=== PATIENT | female | born 1945 | race Caucasian/White ===

== ENCOUNTER → 2016-10-30 | Outpatient (CLI) | payer MEDICARE, BC ==
[2013-12-13 10:45] VITALS: BP 144/72
[~2016-10-30] MED LIST: CYAN50LO PO; DENO60DI SQ; L GA1CAP2 PO; TRAM50TA PO
--- NOTE | 2016-10-30 09:33 | RAD ---
Thoracic spine, 3 views, 10/30/2016: History: Upper back pain The bony structures are demineralized. There is a moderate right convexity thoracic and left convexity thoracolumbar scoliosis. There are mild scattered marginal spurs. There appears to be mild loss of height of the T12 vertebral body. This is not well delineated on the lateral view due to obliquity of positioning related to the scoliosis. The appears to have been present on old CT abdomen images from 05/29/2010. No other fracture is identified. Aortic calcific plaquing is evident. IMPRESSION: 1. Demineralization. 2. Moderate thoracolumbar scoliosis. 3. Mild scattered degenerative changes. 4. Mild loss of height of the T12 vertebral body, probably old.
== END | disposition home or self-care (01) ==
LOC: RAD 09:00
PROVIDERS: ATTEND Anesthesiology
DX: M54.6 Pain in thoracic spine (principal); M41.9 Scoliosis, unspecified; R29.890 Loss of height
CPT/HCPCS: 72072; G0463

== ENCOUNTER → 2016-11-06 | Outpatient (CLI) | payer MEDICARE, BC ==
[2013-12-13 10:45] VITALS: BP 144/72
[~2016-11-06] MED LIST changes: +BUPIVACAINE MPF 0.25% 10 ML VIAL. ONE; +methylPREDNISolone ACETATE 40 MG/ML VIAL. ONE; +methylPREDNISolone ACETATE 80 MG/ML VIAL. ONE
--- NOTE | 2016-11-07 06:40 | PAIN ---
DATE OF SERVICE: 11/06/2016 PROGRESS NOTE FOR PAIN CLINIC DIAGNOSES: 1. Thoracic spondylosis. 2. Thoracic degenerative disk disease. HISTORY OF PRESENT ILLNESS: The patient is a 71-year-old female who returns for followup status post initial evaluation and plain films of thoracic spine, which ruled out any new compression fractures. There is some demineralization and thoracolumbar scoliosis noted with degenerative change and old T12 vertebral compression. The patient returns reporting still significant pain in the upper mid back bilaterally, somewhat worse on the left than the right, but present on both sides as it was previously. The patient has finished a round of antibiotics now and is on her last day of Cipro from urinary tract infection and is afebrile and has been feeling much better with this. We had delayed her procedure secondary to her UTI on her last visit. The patient reports otherwise doing well. Her pain is a 5 on a scale of 10, bilateral pain in the upper back and neck, shoulders, on the left side worse than the right. The patient reports no new motor or sensory deficits or other complaints. We did try Medrol Dosepak, but she only had minimal relief with this. PHYSICAL EXAMINATION: VITAL SIGNS: Today, the patient's blood pressure is 119/62, pulse is 84, respirations 20, temperature is 98.0 degrees Fahrenheit, weight is 135 pounds. GENERAL: The patient is awake, alert, oriented, appropriate, has a very pleasant demeanor. HEENT: Shows normocephalic, atraumatic. Extraocular movements are intact and symmetrical. Oral cavity shows mucous membranes moist and pink. Dentition is intact. NECK: Shows anterior throat supple without palpable lymphadenopathy noted. Swallow reflex is symmetrical. CHEST: Shows normal on inspection. Breath sounds are clear to auscultation bilaterally. HEART: Shows S1 and S2 clear. No murmurs are auscultated. ABDOMEN: Soft, nontender, nondistended. No palpable organomegaly is noted. No rebound or guarding demonstrated. BACK: Shows spine grossly in the midline, with rightward scoliosis of the thoracic distribution, there is significant tenderness over the spinous processes from approximately the T3-T4 through T7-T8 region in the thoracic spine. Paraspinous musculature is slightly hypertrophied on the right compared to the left, but maybe due to the rightward curvature as well and is moderately tender bilaterally, but only diffusely without specific radiation or trigger points. EXTREMITIES: The patient's upper extremities show deep tendon reflexes 2+ in the biceps and triceps tendons. 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 The patient does have some significant tenderness with palpation over the left superior and anterior aspect of the acromioclavicular joint on the left side, but not on the right. PLAN: Options were discussed with the patient at this time, the patient's old chart was reviewed as was her current medication regimen and updated. Current review of systems updated today as well. We will proceed with bilateral thoracic medial branch facet blocks at the T3, T4, T5, T6 and T7 levels bilaterally with fluoroscopic guidance. Risks were again discussed including, but not limited to bleeding, infection, possibility of intravascular injection and sequelae, spread of local anesthetic and numbness, epidural hematoma and subsequent neurological compromise, dural punctures, headaches, spinal cord and/or nerve damage, pneumothorax, side effects of steroid medications, exposure to fluoroscopy and poor results regarding pain control. The patient understands and wishes to proceed. The patient will return to the clinic in approximately 2 weeks for followup, was counseled as to return appointment, activity level and side effects to be aware of. DIAGNOSIS: Thoracic spondylosis with thoracic degenerative disk disease. PROCEDURE: Bilateral thoracic facet medial branch blocks, T3, T4, T5, T6, T7 using C-arm fluoroscopic guidance under sterile prep and drape using local anesthetic. MEDICATIONS INJECTED: 120 mg Depo-Medrol total and a total of 10 mL of 0.25% bupivacaine with negative aspiration at each level. CONDITION AT DISCHARGE: Stable. The patient tolerated the procedure well, had no complications. LINDSAY MANCIA MD DR: JOHN/renae JOB#: [id number] / [id number]
== END | disposition home or self-care (01) ==
LOC: PNCL 07:41
PROVIDERS: ATTEND Anesthesiology
DX: M51.34 Other intervertebral disc degeneration, thoracic region (principal); M47.894 Other spondylosis, thoracic region; K21.9 Gastro-esophageal reflux disease without esophagitis; M19.90 Unspecified osteoarthritis, unspecified site; Z90.710 Acquired absence of both cervix and uterus; Z98.42 Cataract extraction status, left eye; Z98.41 Cataract extraction status, right eye
CPT/HCPCS: 64490; 64491; 64492; J1030; J1040; J3490

== ENCOUNTER → 2016-12-08 | Outpatient (CLI) | payer MEDICARE, BC ==
[2013-12-13 10:45] VITALS: BP 144/72
[~2016-12-08] MED LIST changes: -methylPREDNISolone ACETATE 40 MG/ML VIAL. ONE
--- NOTE | 2016-12-08 11:26 | RAD ---
Indication: Shoulder pain. Portal image intensifier was provided. A total of 6 seconds of fluoroscopy time was utilized. A single image was obtained. There is a needle overlying the acromioclavicular joint. Impression: Left AC joint injection.
--- NOTE | 2016-12-09 01:17 | PAIN ---
DATE OF SERVICE: 12/08/2016 DIAGNOSES: 1. Thoracic spondylosis with thoracic degenerative disk disease. 2. Left shoulder joint pain. HISTORY OF PRESENT ILLNESS: The patient is a 71-year-old female who returns for followup status post thoracic bilateral medial branch blocks T3, T4, T5, T6 and T7. The patient reports she did very well. There was 100% improvement after the injections. Her main pain today is the left shoulder, which she was having difficulty with on her last visit. We treated her back first, she is doing much better as noted. She returns today complaining of pain in the left shoulder with caring ____ to her side, moving the shoulder past about 45 degrees to 90 degrees, lateral abduction causes significant pain in the superior aspect of the shoulder and somewhat in the superior posterior aspect of the shoulder as well. The patient reports no gross strength loss in the left arm, but significant pain with mobility. The patient reports no new motor or sensory deficits, no new bowel or bladder incontinence or other complaints. Again back is doing much better after the medial branch blocks. The pain in the left shoulder now is aching, sharp, burning, radiating, constant, rates as 8 on scale of 10. The patient reports it awakens her from sleep at least 3-4 times at night, may be sometimes 5. She has to get up to pain medication in the middle of the evening. The patient reports otherwise no new motor or sensory deficits or other complaints. PHYSICAL EXAMINATION: VITAL SIGNS: Today, the patient's blood pressure is 128/68 and pulse 85, respirations are 18, temperature is 98.2 degrees Fahrenheit, height is 5 feet 2 inches, and weighs 133 pounds. GENERAL: The patient is awake, alert, oriented, appropriate, very pleasant demeanor. HEENT: Head shows normocephalic and atraumatic. Extraocular movements are intact and symmetrical. Oral cavity, mucous membranes moist and pink. Dentition is intact. NECK: Shows anterior throat supple without palpable lymphadenopathy noted. Neck shows full rotational motion of the cervical spine without difficulty or tenderness. CHEST: Shows normal on inspection. Breath sounds are clear to auscultation bilaterally. HEART: Shows S1 and S2 clear. ABDOMEN: Soft, nontender, and nondistended. No palpable organomegaly, no rebound or guarding demonstrated. BACK: Shows spine grossly in midline with normal-appearing cervical lordotic curvature, thoracic kyphotic curvature, thoracic paraspinous musculature shows some very mild tenderness with palpation, but only very mildly without radiation bilaterally and shows good rotation of motion both lateral rotation with extension and flexion without exacerbation of pain on exam today. EXTREMITIES: The patient's upper extremities show deep tendon reflexes at 2+ in the biceps and triceps tendons. 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 Options were discussed with the patient. The patient's old chart was reviewed as her current medication regimen and updated. Current review of systems updated today as well and we will proceed with a left acromioclavicular joint injection with fluoroscopic guidance. Risks were again discussed including, but not limited to bleeding, infection, possibility of intravascular injection, sequelae, spread of local anesthetic and numbness, side effects of steroid medications, exposure to fluoroscopy and poor results regarding pain control. The patient understands and wishes to proceed. The patient will return to clinic in approximately 4 weeks or as necessary. I would like to follow up on as needed basis at this time, counseled on activity levels as well as side effects to be aware of. DIAGNOSIS: Left shoulder acromioclavicular joint pain. PROCEDURE: Left acromioclavicular joint injection with fluoroscopic guidance under sterile prep and drape using local anesthetic. MEDICATION INJECTED: A total of 3 mL of 0.25% bupivacaine and total of 80 mg Depo-Medrol. CONDITION AT DISCHARGE: Stable. The patient tolerated procedure well, had no complications. LINDSAY MANCIA MD DR: JOHN/renae JOB#: [id number] / [id number]
== END | disposition home or self-care (01) ==
LOC: PNCL 10:37
PROVIDERS: ATTEND Anesthesiology
DX: M25.512 Pain in left shoulder (principal); Z98.41 Cataract extraction status, right eye; Z98.42 Cataract extraction status, left eye; K21.9 Gastro-esophageal reflux disease without esophagitis; Z90.710 Acquired absence of both cervix and uterus; M47.814 Spondylosis without myelopathy or radiculopathy, thoracic region; M51.34 Other intervertebral disc degeneration, thoracic region
CPT/HCPCS: 20605; 77002; J1040; J3490

== ENCOUNTER 2017-09-04 18:56 | Emergency (ER) | payer MEDICARE, BC ==
[2017-09-04 20:06] LABS: BILIRUBIN,URINE NEGATIVE (NEG); CLARITY,URINE CLEAR; COLOR,URINE YELLOW; GLUCOSE,URINE NEGATIVE (NEG); NITRITE,URINE NEGATIVE (NEG); PROTEIN,URINE NEGATIVE (NEG-TRACE); UROBILINOGEN,URINE 0.2 mg/dL (0.2 mg/dL)
[2017-09-04] MEDS: HYDROcodone/APAP 5/325MG 1 TAB TABLET PO ×2 (20:14)
[2017-09-04 20:17] LABS: BACTERIA,URINE 0 /HPF (0-FEW); RBC,URINE 0 /HPF (0-2); SQUAMOUS EPITHELIAL CELL,UR FEW /LPF; WBC,URINE 0 /HPF (0-4)
[2017-09-04] MEDS: PHENAZOPYRIDINE 200 MG TABLET. PO ×2 (21:30)
== END 2017-09-04 21:30 | disposition home or self-care (01) ==
LOC: ER 18:56
DX: R10.31 Right lower quadrant pain (principal); Z90.710 Acquired absence of both cervix and uterus; Z88.0 Allergy status to penicillin; Z88.6 Allergy status to analgesic agent; Z88.8 Allergy status to other drugs, medicaments and biological substances; Z91.041 Radiographic dye allergy status
CPT/HCPCS: 74176; 81001; 99285-25

== ENCOUNTER → 2017-11-10 | Day surgery (SDC) | payer MEDICARE, BC ==
[~2017-11-10] MED LIST changes: -BUPIVACAINE MPF 0.25% 10 ML VIAL. ONE; -CYAN50LO PO; -DENO60DI SQ; -L GA1CAP2 PO; +LIDOCAINE 1% PF 2 ML VIAL. ID; +MORPHINE SULFATE 4 MG/ML DISP.SYRIN. IV; +ONDANSETRON PF 4 MG/2 ML VIAL. IV; +PROCHLORPERAZINE 10 MG/2 ML VIAL. IV; +PROPOFOL 20 ML IV; -TRAM50TA PO; +fentaNYL PF VIAL 100 MCG/2 ML VIAL IV; -methylPREDNISolone ACETATE 80 MG/ML VIAL. ONE
[2017-11-10] MEDS: IV RINGERS,LACTATED 1000ML 1,000 ML IV (09:24)
== END | disposition home or self-care (01) ==
LOC: ENDOS 08:42
DX: K64.0 First degree hemorrhoids (principal); K57.30 Diverticulosis of large intestine without perforation or abscess without bleeding; Z86.010 Personal history of colon polyps; M19.90 Unspecified osteoarthritis, unspecified site; K21.9 Gastro-esophageal reflux disease without esophagitis; M81.0 Age-related osteoporosis without current pathological fracture; M47.894 Other spondylosis, thoracic region; Z90.710 Acquired absence of both cervix and uterus; Z98.890 Other specified postprocedural states; Z87.440 Personal history of urinary (tract) infections; Z79.899 Other long term (current) drug therapy; Z88.0 Allergy status to penicillin; Z88.8 Allergy status to other drugs, medicaments and biological substances; Z98.49 Cataract extraction status, unspecified eye; Z72.0 Tobacco use
CPT/HCPCS: 45378; 45380; 45385; 88305; J2704

== ENCOUNTER → 2018-09-30 | Outpatient (CLI) | payer MEDICARE, BC ==
[2017-11-10 10:48] VITALS: BP 132/72
[~2018-09-30] MED LIST changes: +CYAN50LO PO; +DENO60DI SQ; +GABA600T7 PO; +L GA1CAP2 PO; -LIDOCAINE 1% PF 2 ML VIAL. ID; -MORPHINE SULFATE 4 MG/ML DISP.SYRIN. IV; -ONDANSETRON PF 4 MG/2 ML VIAL. IV; +PHEN-318 PO; -PROCHLORPERAZINE 10 MG/2 ML VIAL. IV; -PROPOFOL 20 ML IV; +TIZA4TAB PO; +TRAM50TA PO; -fentaNYL PF VIAL 100 MCG/2 ML VIAL IV
--- NOTE | 2018-09-30 15:48 | [facility] ---
MRI Lumbar Spine without contrast History: Lumbar stenosis, chronic low back pain, bilateral foot numbness in recent months Technique: Multiplanar, multi sequential noncontrast MR imaging was performed of the lumbar spine. Comparison: May 30, 2010 Findings: There is mild grade 1 anterior spondylolisthesis L5-S1 due to L5 spondylolysis as seen previously. There is negligible anterior spondylolisthesis L3-4 which is unchanged. There is a similar degree of superior endplate concavity T12, increased at L3 without associated marrow edema or osseous retropulsion. There is moderate degenerative disc disease at L3-4 which has progressed in the interval, mild degenerative disc disease L5-S1 and L2-3, mild disc desiccation L4-5. There is moderate to severe levoscoliosis centered near L2. There is mild left lateral subluxation L3 relative to L4. T12-L1: Neural foramina and spinal canal are adequate. L1-L2: There is mild facet degenerative change. Neural foramina and spinal canal are adequate. L2-L3: There is [id number] facet degenerative change. There is negligible disc osteophyte complex and protrusion in the right lateral recess. Spinal canal and neural foramina are overall adequate. L3-L4: There is mild to moderate facet degenerative change and minimal buckling of the ligamentum flavum. There is again minimal disc osteophyte complex and bulge. Neural foramina and spinal canal are adequate. L4-L5: There is a very shallow posterior protrusion which is partially calcified as seen previously, no spinal stenosis or neural impingement. There is mild facet degenerative change. There is minimal narrowing of the left neural foramen, right neural foramen adequate. L5-S1: There is [id number] facet degenerative change. Spinal canal is adequate. There is right laminectomy defect. There is minimal disc osteophyte complex. There is mild narrowing of the right neural foramen. There is moderate to severe narrowing of the left neural foramen, somewhat less prominent than previously as previously seen protrusion decreased. However there is again contact of the exiting left L5 nerve root. Impression: 1. There is moderate to severe lumbar levoscoliosis, abnormal alignment as stated including grade 1 anterior spondylolisthesis at L5-S1 due to L5 spondylolysis. There is moderate to severe narrowing of the left L5-S1 neural foramen although somewhat less prominent than previously. There is no new significant lumbar spinal stenosis. There is multilevel degenerative disc disease which has progressed at L3-4 in the interval. There is old superior endplate concavity of L3 and T12, no evidence of recent compression fracture. Electronically signed by: Hayes Saleh MD (09/30/2018 3:45 PM) [facility]
== END | disposition home or self-care (01) ==
LOC: KCIC MRI 13:54
PROVIDERS: ATTEND Neurological Surgery
DX: M43.17 Spondylolisthesis, lumbosacral region (principal); M48.07 Spinal stenosis, lumbosacral region; M51.36 Other intervertebral disc degeneration, lumbar region; M51.37 Other intervertebral disc degeneration, lumbosacral region; M47.896 Other spondylosis, lumbar region
CPT/HCPCS: 72148

== ENCOUNTER → 2018-10-13 | Outpatient (CLI) | payer MEDICARE, BC ==
[2017-11-10 10:48] VITALS: BP 132/72
[~2018-10-13] MED LIST changes: +IOHEXOL 180 MG/ML 10 ML VIAL. ONE; +methylPREDNISolone ACETATE 40 MG/ML VIAL. ONE; +methylPREDNISolone ACETATE 80 MG/ML VIAL. ONE
--- NOTE | 2018-10-14 06:19 | PAIN ---
DATE OF SERVICE: 10/13/2018 PROGRESS NOTE FOR PAIN CLINIC DIAGNOSES: 1. Cervical radiculopathy with cervical degenerative disk disease. 2. Thoracic spondylosis with thoracic degenerative disk disease. 3. Left shoulder joint pain. HISTORY OF PRESENT ILLNESS: The patient is a 73-year-old female who returns for followup, last seen in 12/2016. The patient had some injections of the shoulder as well as some facet joint injections in the thoracic spine with very good results. She has recently seen her neurosurgeon, has had a new MRI scan of the cervical spine showing some degenerative changes of C5-C6, C6-C7 and C7-T1 with multilevel degenerative processes with central canal narrowing foraminal stenosis, mild contour alteration of the ventral spinal cord and slight increased T2 signal of the cord at C5-C6 level as well. The patient reports that the pain is in the base of the neck more on the left than the right shoulder and upper extremity with repetitive motions in the upper extremities. Sitting for prolonged periods watching television or driving causes some pain in the base of the neck as well as constant headaches. Also the patient reports it is worse with activity, worse with rotation of motion to some point and into the left shoulder and arm, but not into the hand. The patient reports also some pain in the mid back and upper back, but very infrequently. The patient reports it does not awaken her from sleep at night and she describes as aching and dull in the neck and shoulder with a constant quality in the base of the neck and left arm and also some tingling and burning in the feet bilaterally. The patient reports her pain is an 8 on a scale of 10 at its worst, 6 on average, 3 at its least and is a 6 today. The patient reports no new motor or sensory deficits, no new bowel or bladder incontinence or other complaints. Her mid back is doing much better since her treatment few years ago as her shoulder did very well and she has seen orthopedic surgeon regarding these also. PHYSICAL EXAMINATION: VITAL SIGNS: Today, the patient's blood pressure 115/55, pulse 77, respirations 16, temperature 98.1 degrees Fahrenheit, height is 5 feet 2 inches and weight is 122 pounds. GENERAL: The patient is awake, alert, oriented, appropriate, very pleasant demeanor. HEENT: Head shows normocephalic and atraumatic. Extraocular movements are intact and symmetrical. Oral cavity: Mucous membranes are moist and pink. Dentition is intact. NECK: Shows anterior throat is supple without palpable lymphadenopathy noted. Swallow reflex is symmetrical. CHEST: Shows normal with inspection. Breath sounds are clear to auscultation bilaterally. HEART: Shows S1 and S2 clear. No murmurs are auscultated. ABDOMEN: Soft, nontender and nondistended. No palpable organomegaly is noted. No rebound or guarding demonstrated. BACK: Shows spine grossly in the midline. Normal appearing thoracic kyphosis, cervical lordotic curvature and lumbar lordotic curvature. Cervical paraspinous muscle shows symmetrical on inspection. On palpation shows some mild tenderness, but only diffusely in the cervical distribution, inferior aspect of the cervical paraspinous muscles, but symmetrical without evidence of atrophy, hypertrophy and no trigger points. The patient shows good rotational motion of the cervical spine, both right and left lateral past 45 degrees closer to 90 degrees, full extension, full forward flexion without exacerbation of pain. EXTREMITIES: The patient's upper extremities show deep tendon reflexes at 2+ in the biceps and triceps tendons. Motor exam is strong with tobacco sampler strength rated 5/5 and equal as is bicep and tricep flexion and equal. Peripheral pulses are 2+ radial distribution. No peripheral edema is noted bilaterally. Options were discussed with the patient. The patient's old chart was reviewed as was her current medication regimen updated. Current review of systems updated today as well. We will proceed with a cervical epidural steroid injection today with fluoroscopic guidance. Risks were again discussed including, but not limited to bleeding, infection, possibility of epidural hematoma, subsequent neurologic compromise, dural puncture, headaches, spinal cord and/or nerve damage, side effects of steroid medication and poor results regarding pain control. The patient understands and wished to proceed. The patient will return to the clinic in approximately 2 weeks for followup. She was counseled as to return appointment, activity level and side effects to be aware of. DIAGNOSES: Cervical radiculopathy with cervical degenerative disk disease. PROCEDURE: Cervical epidural steroid injection, translaminar approach C6-C7 level using C-arm fluoroscopic guidance under sterile prep and drape using local anesthetic. MEDICATION INJECTED: A total of 120 mg Depo-Medrol plus 10 mL of preservative-free normal saline and 2 mL of Isovue for contrast. CONDITION AT DISCHARGE: Stable. The patient tolerated the procedure well and had no complications. LINDSAY MANCIA MD DR: Tripp JOB#: [id number] / [id number]
== END | disposition home or self-care (01) ==
LOC: PNCL 08:57
PROVIDERS: ATTEND Anesthesiology
DX: M50.123 Cervical disc disorder at C6-C7 level with radiculopathy (principal); M51.14 Intervertebral disc disorders with radiculopathy, thoracic region; M47.24 Other spondylosis with radiculopathy, thoracic region; M25.512 Pain in left shoulder; Z88.0 Allergy status to penicillin; Z88.6 Allergy status to analgesic agent; Z88.8 Allergy status to other drugs, medicaments and biological substances
CPT/HCPCS: 62321; J1030; J1040; Q9965

== ENCOUNTER → 2018-10-26 | Outpatient (CLI) | payer MEDICARE, BC ==
[2017-11-10 10:48] VITALS: BP 132/72
[~2018-10-26] MED LIST changes: -IOHEXOL 180 MG/ML 10 ML VIAL. ONE
--- NOTE | 2018-10-26 20:32 | PAIN ---
DATE OF SERVICE: 10/26/2018 DIAGNOSES: 1. Cervical radiculopathy with cervical degenerative disk disease. 2. Thoracic spondylosis with thoracic degenerative disk disease. 3. Left shoulder joint pain.. HISTORY OF PRESENT ILLNESS: The patient is a 73-year-old female who returns for followup status post cervical epidural steroid injection x1. The patient reports no significant improvement in the base of the neck pain and radiating pain to her left shoulder and upper extremity. The patient reports the pain continues in the posterior deltoid, posterior triceps into the forearm, both anteriorly and medially and some tingling in the hand. The patient reports it also aching and dull in the neck, becoming more constant with tingling, burning in the left hand, no specific loss of motor function, but she is noticing some increased fatigue with her left hand, left arm with repetitive motions, reaching above her head. The patient reports pain is 7 on a scale of 10 at all times, worst, least and on average, is a 7 today. The patient reports no new motor or sensory deficits. Still waking her from sleep at night. The patient reports no other changes. PHYSICAL EXAMINATION: VITAL SIGNS: The patient's blood pressure 134/54, pulse 81, respirations 16, temperature is 98.0 degrees Fahrenheit. Height 5 feet 2 inches, weight is 125 pounds. GENERAL: The patient is awake, alert, oriented, appropriate, very pleasant demeanor. HEENT: Head is normocephalic, atraumatic. Extraocular muscles are intact and symmetrical. Oral cavity: Mucous membranes moist and pink. Dentition is intact. NECK: Shows anterior throat supple without palpable lymphadenopathy noted. Swallow reflex symmetrical. CHEST: Shows normal with inspection. Breath sounds clear to auscultation bilaterally. HEART: Shows S1, S2 clear. No murmurs auscultated. ABDOMEN: Soft, nontender, nondistended. No palpable organomegaly is noted. No rebound or guarding demonstrated. BACK: Shows spine grossly in the midline. Cervical lordotic curvature is maintained as is thoracic kyphotic curvature and lumbar lordotic curvature. Cervical paraspinous muscle shows symmetrical on inspection. On palpation shows some moderate tenderness diffusely, more on the left than the right throughout the middle and lower distribution of paraspinous muscles, but without specific radiation. The patient has good rotational motion of cervical spine, both laterally as well as extension and flexion without significant difficulty. EXTREMITIES: The patient's upper extremities show deep tendon reflexes 2+ in the biceps, triceps tendons. 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 Peripheral pulses are 2+ radial distribution. No peripheral edema is noted bilaterally. Options were discussed with the patient. The patient's old chart was reviewed as her current medication regimen updated. Current review of systems updated today as well. We will proceed with a second cervical epidural steroid injection today with fluoroscopic guidance. Risks were again discussed including, but not limited to bleeding, infection, possibility of epidural hematoma, subsequent neurological compromise, dural puncture, headaches, spinal cord and/or nerve damage, side effects of steroid medication and poor results regarding pain control. The patient understands and wished to proceed. The patient to return to clinic in approximately 2 weeks for followup, was counseled on return appointment, activity level and side effects to be aware of. DIAGNOSES: Cervical radiculopathy with cervical degenerative disk disease. PROCEDURE: Cervical epidural steroid injection, translaminar approach C6-C7 level using C-arm fluoroscopic guidance under sterile prep and drape using local anesthetic. MEDICATION INJECTED: A total of 120 mg Depo-Medrol plus 5 mL of preservative-free normal saline and 2 mL of Omnipaque for contrast. CONDITION AT DISCHARGE: Stable and the patient tolerated the procedure well, had no complications. LINDSAY MANCIA MD DR: JOHN/renae JOB#: [id number] / [id number]
== END | disposition home or self-care (01) ==
LOC: PNCL 08:21
PROVIDERS: ATTEND Anesthesiology
DX: M50.123 Cervical disc disorder at C6-C7 level with radiculopathy (principal); M51.14 Intervertebral disc disorders with radiculopathy, thoracic region; M25.512 Pain in left shoulder; M47.24 Other spondylosis with radiculopathy, thoracic region; Z88.0 Allergy status to penicillin; Z88.6 Allergy status to analgesic agent; Z88.8 Allergy status to other drugs, medicaments and biological substances
CPT/HCPCS: 62321; J1030; J1040

== ENCOUNTER → 2018-11-09 | Outpatient (CLI) | payer MEDICARE, BC ==
[2017-11-10 10:48] VITALS: BP 132/72
[~2018-11-09] MED LIST changes: +BUPIVACAINE MPF 0.25% 10 ML VIAL. ONE; -methylPREDNISolone ACETATE 40 MG/ML VIAL. ONE
--- NOTE | 2018-11-10 00:02 | PAIN ---
DATE OF SERVICE: 11/09/2018 PROGRESS NOTE FOR PAIN CLINIC DIAGNOSES: 1. Cervical radiculopathy with cervical degenerative disk disease. 2. Left shoulder joint pain. HISTORY OF PRESENT ILLNESS: The patient is a 73-year-old female who returns for followup status post cervical epidural steroid injection x 2. The patient reports about 100% improvement for the first week to 2 weeks and the pain is returning now at the base of the neck and left shoulder. The patient reports the neck is doing better, but her shoulder is significantly painful. Rates it as a 9 on a scale of 10 at its worst, least and average and a 9 today. The patient reports aching, dull, radiating, becoming more constant and more severe. Again, the injection helped significantly for the first week or 2 weeks, but the pain is returning now more in the shoulder than in the neck. The patient has had multiple procedures with her shoulder in the past and is doing quite well with these and would like to pursue this today. We discussed this on her last visit as well. The patient reports it is worse with raising over her head on her left side, but has good range of motion, just significant pain mostly in the top of the shoulder and some in the posterior aspect as well. The patient reports no new motor or sensory deficits, no new bowel or bladder incontinence or other complaints. PHYSICAL EXAMINATION: VITAL SIGNS: The patient's blood pressure is 124/61, pulse 79, respirations are 18, temperature is 98.2 degrees Fahrenheit. Height is 5 feet 2 inches, weight is 122 pounds. GENERAL: The patient is awake, alert, oriented, appropriate, very pleasant demeanor. HEENT: Head shows normocephalic, atraumatic. Extraocular movements intact and symmetrical. Oral cavity: Mucous membranes moist and pink. Dentition is intact. NECK: Shows anterior throat supple without palpable lymphadenopathy noted. Swallow reflex symmetrical. CHEST: Shows normal with inspection. Breath sounds clear to auscultation bilaterally. HEART: Shows S1, S2 clear. No murmurs auscultated. ABDOMEN: Soft, nontender, nondistended. No palpable organomegaly is noted. No rebound or guarding demonstrated. BACK: Shows spine grossly in the midline. Cervical paraspinous muscle shows symmetrical on inspection, on palpation with some moderate tenderness, but only diffusely with palpation, more on the left than the right, but symmetrical. No trigger points, no radiation. The patient has good rotational motion of cervical spine both laterally as well as extension and flexion without significant increase in pain. EXTREMITIES: The patient's upper extremities show deep tendon reflexes 2+ in the biceps and triceps tendons. Motor exam is strong with electrogalvanizing machine operator strength rated at 5/5, as is biceps and triceps flexion. Peripheral pulses are 2+ radial distribution. No peripheral edema is noted bilaterally. The patient's left shoulder shows good range of motion, good abduction, forward and rearward extension and flexion, with palpation shows significant tenderness over the acromioclavicular joint on the left side, mostly in the superior and slightly in the posterior aspect of the joint. Otherwise, good range of motion without significant pain and no pain with palpation over the biceps insertion, over the deltoid posteriorly or anteriorly. Options were discussed with the patient. The patient's old chart was reviewed as her current medication regimen updated. Current review of systems updated today as well. We will proceed with left acromioclavicular joint injection today with fluoroscopic guidance. Risks were again discussed including, but not limited to, bleeding, infection, possibility of intravascular injection sequelae, spread of local anesthetic and numbness, side effects of steroid medication, exposure to fluoroscopy and poor results regarding pain control. The patient understands and wished to proceed. The patient will return to the clinic in approximately 2 weeks for followup. She was counseled as to return appointment, activity level and side effects to be aware of. DIAGNOSIS: Primary osteoarthritis, left shoulder acromioclavicular joint. PROCEDURE: Left acromioclavicular joint injection using C-arm fluoroscopic guidance under sterile prep and drape using local anesthetic. MEDICATION INJECTED: A total of 40 mg Depo-Medrol plus total of 3 mL of 0.25% bupivacaine after negative aspiration under direct fluoroscopic guidance. CONDITION AT DISCHARGE: Stable. The patient tolerated procedure well, had no complications. LINDSAY MANCIA MD DR: JOHN/renae JOB#: [id number] / [id number]
== END | disposition home or self-care (01) ==
LOC: PNCL 08:03
PROVIDERS: ATTEND Anesthesiology
DX: M19.012 Primary osteoarthritis, left shoulder (principal); M50.10 Cervical disc disorder with radiculopathy, unspecified cervical region; Z88.0 Allergy status to penicillin; Z88.6 Allergy status to analgesic agent; Z88.8 Allergy status to other drugs, medicaments and biological substances
CPT/HCPCS: 20605; 77002; J1040; J3490

== ENCOUNTER → 2019-03-08 | Outpatient (CLI) | payer MEDICARE, BC ==
[2017-11-10 10:48] VITALS: BP 132/72
[~2019-03-08] MED LIST changes: +IOHEXOL 180 MG/ML 10 ML VIAL. ONE; -TIZA4TAB PO; +TIZA4TAB2 PO; +methylPREDNISolone ACETATE 40 MG/ML VIAL. ONE
--- NOTE | 2019-03-08 10:19 | PAIN ---
DATE OF SERVICE: 03/08/2019 PROGRESS NOTE FOR PAIN CLINIC DIAGNOSES: 1. Thoracic spondylosis with thoracic degenerative disk disease. 2. Cervical radiculopathy with cervical degenerative disk disease. 3. Left shoulder joint pain with primary osteoarthritis, right shoulder. HISTORY OF PRESENT ILLNESS: The patient is a 73-year-old female who returns for followup status post left acromioclavicular joint injection on 11/09/2018. The patient did very well with this, with about 85% improvement for about 3 months. The patient reports the pain is returning now on the left shoulder with activity, reaching above her head, also holding items, carrying things on her left side. The patient reports the pain is 8 on a scale of 10 at its worst over the past week, 8 on average, 6 at its least, and is an 8 today. The patient reports it is aching and dull, radiating at times and constant in the left shoulder itself. The patient reports no new motor or sensory deficits. It does not awaken her from sleep at night. PHYSICAL EXAMINATION: VITAL SIGNS: The patient's blood pressure is 132/96, pulse 81, respirations 18, temperature 98.5 degrees Fahrenheit. Height is 5 feet 2 inches, weight is 120 pounds. GENERAL: The patient is awake, alert, oriented, appropriate, very pleasant demeanor. HEENT: Exam shows normocephalic, atraumatic. Extraocular movements are intact and symmetrical. Oral cavity: Mucous membranes moist and pink. Dentition is intact. NECK: Shows anterior throat supple without palpable lymphadenopathy noted. Swallow reflex is symmetrical. CHEST: Shows normal on inspection. Breath sounds are clear to auscultation bilaterally. HEART: Shows S1, S2 clear. No murmurs auscultated. ABDOMEN: Soft, nontender, nondistended. BACK: Shows spine grossly in midline. Cervical paraspinous muscle shows symmetrical on inspection. There is some mild tenderness in the inferior aspect of the cervical paraspinous muscles on the left, but not the right. The patient has good rotational motion of cervical spine, greater than 45 degrees right and left, as well as extension and full forward flexion performed without increase in pain. EXTREMITIES: The patient's upper extremities show deep tendon reflexes 2+ in the biceps and triceps tendons. Motor exam is 5/5 with die cast operator strength, bicep and tricep flexion. The patient has some significant tenderness over the left acromioclavicular joint with palpation both anteriorly and posteriorly, but without significant radiation. The patient has good rotational motion of the shoulder joint both actively and passively. Options were discussed with the patient. The patient's old chart was reviewed as her current medication regimen updated. Current review of systems updated today as well. We will proceed with a left acromioclavicular joint injection today with fluoroscopic guidance. Risks were again discussed including, but not limited to bleeding, infection, possibility of intravascular injection sequelae, spread of local anesthetic and numbness, side effects of steroid medication, exposure to fluoroscopy and poor results regarding pain control. The patient understands and wished to proceed. The patient will return to the clinic in approximately 2 weeks for followup. She was counseled as to return appointment, activity level and side effects to be aware of. DIAGNOSIS: Left shoulder joint pain with primary osteoarthritis, left shoulder joint, acromioclavicular. PROCEDURE: Left acromioclavicular joint injection using C-arm fluoroscopic guidance, under sterile prep and drape using local anesthetic. MEDICATION INJECTED: A total of 2 mL of 0.25% bupivacaine and 40 mg Depo-Medrol and 1 mL of contrast. CONDITION AT DISCHARGE: Stable. The patient tolerated the procedure well, had no complications. LINDSAY MANCIA MD DR: JOHN/renae JOB#: [id number] / [id number]
== END ==
LOC: PNCL 08:11
PROVIDERS: ATTEND Anesthesiology
DX: M19.011 Primary osteoarthritis, right shoulder (principal); M47.812 Spondylosis without myelopathy or radiculopathy, cervical region; M47.814 Spondylosis without myelopathy or radiculopathy, thoracic region; M51.34 Other intervertebral disc degeneration, thoracic region; M50.10 Cervical disc disorder with radiculopathy, unspecified cervical region
CPT/HCPCS: 20605; 77002; J1030; J3490; Q9965; 20600; J1040

== ENCOUNTER → 2020-03-12 | Outpatient (CLI) | payer MEDICARE, BC ==
[2017-11-10 10:48] VITALS: BP 132/72
[~2020-03-12] MED LIST changes: -BUPIVACAINE MPF 0.25% 10 ML VIAL. ONE; -IOHEXOL 180 MG/ML 10 ML VIAL. ONE; -methylPREDNISolone ACETATE 40 MG/ML VIAL. ONE; -methylPREDNISolone ACETATE 80 MG/ML VIAL. ONE
== END | disposition home or self-care (01) ==
LOC: LAB 13:06
PROVIDERS: ATTEND Surgery
DX: Z01.818 Encounter for other preprocedural examination (principal); Z11.59 Encounter for screening for other viral diseases; K82.8 Other specified diseases of gallbladder; Z88.8 Allergy status to other drugs, medicaments and biological substances; Z88.7 Allergy status to serum and vaccine; Z88.6 Allergy status to analgesic agent; Z88.5 Allergy status to narcotic agent; Z88.3 Allergy status to other anti-infective agents; Z88.0 Allergy status to penicillin; Z88.2 Allergy status to sulfonamides
CPT/HCPCS: U0003-CS

== ENCOUNTER 2020-03-15 07:45 | Day surgery (SDC) | payer MEDICARE, BC ==
[~2020-03-15] VITALS: Ht 154.9 cm; Wt 54.5 kg
[~2020-03-15 07:45] MED LIST changes: +BUPIVACAINE-EPI 0.25%-1:200000 MPF 30 ML VIAL. ONE; +CLINDAMYCIN 900MG PREMIX 50 ML IV PRN; +HYDROmorphone 2 MG/ML VIAL IV PRN; +IOHEXOL 300 MG/ML 50 ML VIAL. ONE; +IV RINGERS,LACTATED 1000ML 1,000 ML IV SCH; +LIDOCAINE 1% PF 2 ML VIAL. ID PRN; +MORPHINE SULFATE 2 MG/ML VIAL. IV PRN; +ONDANSETRON PF 4 MG/2 ML VIAL. IV PRN; +PROCHLORPERAZINE 10 MG/2 ML VIAL. IV PRN; +SURGICEL HEMOSTAT 4X8 EACH. ONE; +fentaNYL PF VIAL 100 MCG/2 ML VIAL IV PRN
[2020-03-15] MEDS ORDERED: ACETAMINOPHEN 500 MG TABLET PO ONE ×2 (08:03→08:30)
[2020-03-15] MEDS ORDERED: ONDANSETRON PF 4 MG/2 ML VIAL. ONE (08:46)
[2020-03-15] MEDS ORDERED: ROCURONIUM 50 MG/5 ML VIAL. ONE (08:46)
[2020-03-15] MEDS ORDERED: DEXAMETHASONE SOD PHOS 4 MG/ML VIAL ONE (08:47)
[2020-03-15] MEDS ORDERED: LIDOCAINE 2% PF 5 ML VIAL. ONE (08:47)
[2020-03-15] MEDS ORDERED: MIDAZOLAM HCL/PF 2 MG/2 ML VIAL. ONE (08:47)
[2020-03-15] MEDS ORDERED: PROPOFOL 10 MG/ML (20ML) VIAL. IV ONE (08:47)
[2020-03-15] MEDS ORDERED: SEVOFLURANE 61 TO 120 MINUTES. IH ONE (08:47)
[2020-03-15] MEDS ORDERED: fentaNYL PF VIAL 250 MCG/5 ML VIAL ONE (08:48)
[2020-03-15] MEDS ORDERED: NEOSTIGMINE METHYLSULFATE 5 MG/5 ML SYRINGE. ONE (10:03)
[2020-03-15] MEDS ORDERED: GLYCOPYRROLATE 1 MG/5 ML VIAL. ONE (10:04)
--- NOTE | 2020-03-15 10:09 | PDOC4 ---
Operative Note Operative Note Date: March 15, 2020 at 1006 Preoperative diagnosis: Biliary dyskinesia Postoperative diagnosis: Same Procedure: Laparoscopic cholecystectomy Specimen: Gallbladder Surgeon: John Dictation: Patient is a 74-year-old female is had right upper quadrant abdominal pain postprandial nausea ultrasound showed no stones but a HIDA scan did show ejection fraction of only 11%. Procedure of laparoscopic cholecystectomy was explained to the patient detail all risk benefits were also discussed including bleeding infection injury to intra-abdominal contents possibly necessitating fur ther or open operations alternatives to this procedure also discussed with the patient who seemed to understand and gave both verbal and written consent to have the procedure performed. Patient was taken to the operating room placed in supine position general anesthesia was initiated once patient was sleeping intubated her abdomen was prepped and draped usual sterile fashion using ChloraPrep and area just below the umbilicus was injected quarter percent Marcaine with epinephrine incision was made 11 blade scalpel and a varies needle was placed within the abdomen creating pneumoperitoneum once this was complete low millimeter port was placed and a 5 mm camera was placed within the abdomen which was inspected no other abnormalities were noted. 5 mm port was placed in the epigastrium a 5 mm port was placed in the right midabdomen and 5 mm port was placed in the right lateral abdomen the dome of the gallbladder is grasped retracted cephalad the infundibulum of the gallbladder is grasped retracted laterally exposing the triangle NAVI with adherent tissues of the triangle were taken down exposing the cystic duct and cystic artery both were doubly clipped and transected the gallbladder is taken off the liver with hook electrocautery placed in Endo Catch bag removed and the umbilicus. The right upper quadrant was irrigated and suctioned dry hemostasis deemed to be appropriate and the pneumoperitoneum was reduced all ports were removed the fascial defect at the umbilicus was closed with a zwrywe-cl-owhbe 0 Vicryl suture and the skin was reapproximated all port sites for subcuticular Monocryl Mastisol Steri-Strips and island dressings were applied. Patient was awakened and extubated in the operating room taken to recovery in stable condition all sponge instrument needl e counts listed as correct estimated blood loss 5 mL. FANY XIAO MD Mar 15, 2020 10:09
--- NOTE | 2020-03-15 10:10 | DISCH ---
DISCHARGE INSTRUCTIONS Condition on Discharge Condition on Discharge: Stable Activity After Discharge Activity Instructions for Disc: Avoid exertion Other activity instructions: No lifting more than 20 pounds for 2 weeks Diet after Discharge Diet after Discharge: Low Fat Wound Incision Care Other wound/incision instructi: May shower in 24 hours Contacting the after DC Call your doctor for: If your condition worsens Follow-Up Follow up with: Dr. Xiao in 2 weeks FANY XIAO MD Mar 15, 2020 10:10
[2020-03-15] MEDS ORDERED: oxyCODONE/APAP 5/325 1 TAB TABLET PO ONE ×2 (10:45)
[2020-03-15] MEDS ORDERED: fentaNYL PF VIAL 100 MCG/2 ML VIAL ONE (10:46)
[2020-03-15] MEDS: fentaNYL PF VIAL 100 MCG/2 ML VIAL IV PRN ×2 (10:48→10:58)
[2020-03-15 11:30] VITALS: BP 137/37
--- NOTE | 2020-03-19 16:06 | PATHOLOGY ---
[facility] Accession Number: [id number] . 01 Material submitted: . gallbladder - GALLBLADDER AND CONTENTS . 01 Clinical history: . RUQ pain . 02 Diagnosis: Gallbladder, laparoscopic cholecystectomy: - Chronic cholecystitis. - Benign polyps of gallbladder. - Lipogranulomata of gallbladder neck lymph node. (JPM:sandra; 03/19/2020) QMS 03/19/2020 1500 Local . 02 Comment: There are no calculi identified within the gallbladder lumen or specimen container. There is no evidence of malignancy. (JPM:sandra; 03/19/2020) . 02 Electronically signed: . Isidro Stokes MD, Pathologist NPI- [id number] . 01 Gross description: . The specimen is received in formalin labeled "Schuler, Kaitlin, gallbladder and contents" and consists of an intact green gallbladder measuring 8.8 x 2.8-2.4 cm. The margin is inked black. Opening reveals a lumen filled with viscous green bile and no calculi. The mucosa is green and velvety with an average wall thickness of 0.1 cm. There is a 0.4 x 0.3 cm polypoid area at the fundus. Adjacent the gallbladder neck is a lymph node. Ophthalmologist sections are submitted in A1. (SDY; 03/16/2020) SYU/SYU 03/16/2020 1102 Local . 02 Pathologist provided ICD-10: K81.1, K82.4 . 02 CPT . 472251 Specimen Comment: A courtesy copy of this report has been sent to [phone], [phone] Specimen Comment: 1112 Specimen Comment: Report sent to / Performed at: 01 [facility] [address], [place], [place] [id number] MD Mohamud Adam MD Phone: [phone] Performed at: [address] [id number] MD Isidro Stokes MD Phone: [phone]
== END 2020-03-15 12:13 | disposition home or self-care (01) ==
LOC: SURG 07:45
PROVIDERS: ATTEND Surgery
DX: K81.1 Chronic cholecystitis (principal); K82.8 Other specified diseases of gallbladder; Z88.0 Allergy status to penicillin; Z88.8 Allergy status to other drugs, medicaments and biological substances; Z88.2 Allergy status to sulfonamides; Z79.899 Other long term (current) drug therapy
CPT/HCPCS: 47562; A7015; J1100; J2250; J2405; J2704; J2710; J3010; J3490; J7030; 88304; Q9967

== ENCOUNTER → 2021-02-07 | Outpatient (CLI) | payer MEDICARE, BC ==
[~2021-02-07] MED LIST changes: -BUPIVACAINE-EPI 0.25%-1:200000 MPF 30 ML VIAL. ONE; -CLINDAMYCIN 900MG PREMIX 50 ML IV PRN; -HYDROmorphone 2 MG/ML VIAL IV PRN; -IOHEXOL 300 MG/ML 50 ML VIAL. ONE; -IV RINGERS,LACTATED 1000ML 1,000 ML IV SCH; -LIDOCAINE 1% PF 2 ML VIAL. ID PRN; -MORPHINE SULFATE 2 MG/ML VIAL. IV PRN; -ONDANSETRON PF 4 MG/2 ML VIAL. IV PRN; -PROCHLORPERAZINE 10 MG/2 ML VIAL. IV PRN; -SURGICEL HEMOSTAT 4X8 EACH. ONE; +TIZA-75 PO; -TIZA4TAB2 PO; -fentaNYL PF VIAL 100 MCG/2 ML VIAL IV PRN
--- NOTE | 2021-02-07 16:55 | KCIC ---
CT NECK SOFT TISSUE WITHOUT CONTRAST History:Reason: GLOBUS SENSATION / Spl. Instructions: / History: Pt feels lump inside throat. Technique: CT imaging was performed of the neck soft tissues without contrast. Coronal and sagittal r econstructions were performed. Exposure: One or more of the following individualized dose reduction techniques were utilized for thi s examination: 1. Automated exposure control 2. Adjustment of the mA and/or kV according to patient size 3. Use of iterative reconstruction technique. Comparison: None Findings: Thickening in the region of the left false vocal cords (series 2 image 38 and 39 and series 4 image 8 ) compared to the right. Normal appearance of the epiglottis, aryepiglottic folds and piriform sinuse s. Evaluation is degraded without intravenous contrast for several lesions. Normal appearance of the bilateral submandibular and parotid glands. Unremarkable thyroid gland. No pathologic lymphadenopathy. Mild pulmonary emphysema. Imaged paranasal sinuses and mastoid air cells are clear. Partially imaged and cephalization within t he right occipital lobe. Multilevel cervical spondylosis most prominent C4-C5, C5-C6 and C6-C7. Multilevel canal narrowing mos t prominent C4-C5 and C5-C6. Moderate to severe canal narrowing C5-C6. Multilevel neuroforaminal narr owing. Impression: 1. Thickening in the region of the left false focal cords compared to the right. Recommend direct vi sualization. 2. Moderate multilevel cervical spondylosis most prominent C5-C6 with moderate to severe canal narro wing. 3. Partially imaged right occipital encephalomalacia. Electronically signed by: Cain Gilbert DO (02/07/2021 4:53 PM) [id number]
== END ==
LOC: KCIC CT 12:21
PROVIDERS: ATTEND Internal Medicine Gastroenterology
DX: F45.8 Other somatoform disorders (principal); G93.89 Other specified disorders of brain; M47.812 Spondylosis without myelopathy or radiculopathy, cervical region; M48.02 Spinal stenosis, cervical region; J43.9 Emphysema, unspecified
CPT/HCPCS: 70490

== ENCOUNTER → 2021-02-19 | Outpatient (CLI) | payer MEDICARE, BC ==
[~2021-02-19] MED LIST changes: -TIZA-75 PO; +TIZA4TAB2 PO
--- NOTE | 2021-02-19 16:56 | RAD ---
MRI of the brain without contrast 02/19/2021 Clinical History: History of CVA. Technique: Unenhanced T1-weighted sagittal and axial, T2-weighted axial and coronal and FLAIR, suscep tibility weighted and diffusion-weighted axial images of the brain were obtained. Findings: There is generalized parenchymal atrophy. Patchy and several small scattered areas of incre ased signal intensity are seen within the periventricular and subcortical white matter of both cerebr al hemispheres on the FLAIR and T2-weighted images consistent with areas of small vessel ischemic dis ease. An area of encephalomalacia is seen involving portions of the right occipital lobe posterior ri ght parietal lobe. No acute parenchymal abnormality is seen. No extra-axial fluid collection is noted . There is no MRI evidence of acute ischemia/infarction. Mild mucosal thickening is seen scattered throughout the paranasal sinuses. There are minimal bilater al mastoid effusions. Normal flow voids are seen within the major vascular structures surrounding the brain parenchyma. IMPRESSION: An area of encephalomalacia is seen involving portions of the right occipital and posteri or right parietal lobe consistent with an area of infarction. No acute parenchymal abnormality is see n. Electronically signed by: Richy Carmen MD (02/19/2021 4:53 PM) [id number]
--- NOTE | 2021-02-20 12:56 | RAD ---
EXAM: Bilateral carotid duplex with waveform analysis. CLINICAL HISTORY: Reason: CVA/CAROTID ARTERY STENOSIS / Spl. Instructions: / History: . . TECHNIQUE: Longitudinal and transverse sonographic images of the bilateral carotid arteries was perfo rmed utilizing grayscale, color and spectral Doppler techniques. COMPARISON: None FINDINGS: Right Carotid: No significant plaque Left Carotid: Calcifications in the carotid bulb Vertebrals: Antegrade flow Right Left PSV CCA (cm/s) 88 85 PSV ICA (cm/s) 76 108 EDV ICA (cm/s) 23 35 PSV ECA (cm/s) 71 71 ICA/CCA Ratio 0.86 1.27 IMPRESSION: Less than 50 percent stenosis of the internal carotid arteries. Consensus Panel Kamara-scale and Doppler US Criteria for Diagnosis of ICA Stenosis Degree of Stenosis (%) ICA PSV (Cm/sec) Plaque Estimate (%)* Normal <125 None <50 <125 <50 50-69 125-230 >50 >70 but < near occlusion >230 >50 Near occlusion High, low, or undetectable Visible Total occlusion Undetectable Visible, no detectable lumen *Plaque estimate (diameter reduction) with kamara-scale and color Doppler US Degree of Stenosis (%) ICA/CCA PSV Ratio ICA EDV (cm/sec) Normal <2.0 <40 <50 <2.0 <40 50-69 2.0-4.0 40-100 >70 but < near occlusion >4.0 >100 Near occlusion Variable Variable Total occlusion Not applicable Not applicable Electronically signed by: Ana Doaln MD (02/20/2021 12:54 PM) [id number]
== END ==
LOC: MRI 13:42
PROVIDERS: ATTEND Internal Medicine
DX: I65.22 Occlusion and stenosis of left carotid artery (principal); G31.9 Degenerative disease of nervous system, unspecified; G93.89 Other specified disorders of brain
CPT/HCPCS: 70551; 93880

== ENCOUNTER → 2021-03-11 | Outpatient (CLI) | payer MEDICARE, BC ==
--- NOTE | 2021-03-11 13:13 | CARD ---
MR#: [id number] Date of Study: 03/11/2021 Ordering Physician: CHET NAQVI, Referring Physician: Edward ROMANO: Chele Roach [facility] APPROVED REPORT EXAM: Two-dimensional and M-mode echocardiogram with Doppler and color Doppler. Other Information Quality : AverageGoodHR: 71bpm Rhythm : NSR INDICATION CVA/TIA RISK FACTORS Hyperlipidemia Smoking 2D DIMENSIONS Left Atrium(2D)3.4 (1.6-4.0cm)IVSd0.8 (0.7-1.1cm) Aortic Root(2D)2.9 (2.0-3.7cm)LVDd4.6 (3.9-5.9cm) LVOT Diameter1.8 (1.8-2.4cm)PWd0.8 (0.7-1.1cm) LVDs2.5 (2.5-4.0cm)FS (%) 45.2 % SV73.4 mlLVEF(%)76.6 (>50%) Aortic Valve AoV Peak Pankaj.170.5cm/sAoV VTI36.0cm AO Peak GR.11.6mmHgLVOT Peak Pankaj.127.7cm/s AO Mean GR.5mmHgAVA (VMAX)1.98cm2 AI P 1/2 [id number] Mitral Valve MV E Wcupedbr80.5cm/sMV E Peak Gr.3mmHg MV DECEL [id number] A Mvysbxge80.8cm/s MV E Mean Gr.1mmHgE/A Ratio1.1 Pulmonary Valve PV Peak Sqafakzs66.7cm/s Tricuspid Valve TR P. Oztmydxz621oz/sTR Peak Gr.28mmHg Pulmonary Vein S1 Mrvacvtg42.2cm/sD2 Izqhzebm47.8cm/s LEFT VENTRICLE The left ventricle is normal size. There is normal left ventricular wall thickness. The left ventricu lar systolic function is normal. The ejection fraction is 60-65%. There is normal LV segmental wall m otion. Transmitral Doppler flow pattern is Grade II-pseudonormal filling dynamics. No left ventricle thrombus noted on this study. There is no ventricular septal defect visualized. There is no left vent ricular aneurysm. There is no mass noted in the left ventricle. RIGHT VENTRICLE The right ventricle is normal size. There is normal right ventricular wall thickness. The right ventr icular systolic function is normal. ATRIA The left atrium is mildly dilated. The right atrium size is normal. The interatrial septum is intact with no evidence for an atrial septal defect or patent foramen ovale as noted on 2-D or Doppler imagi ng. AORTIC VALVE The aortic valve is mildly sclerotic. Doppler and Color Flow revealed moderate aortic regurgitation. There is no significant aortic valvular stenosis. There is no aortic valvular vegetation. MITRAL VALVE The mitral valve is mildly thickened. There is no evidence of mitral valve prolapse. There is no mitr al valve stenosis. Doppler and Color-flow revealed mild to moderate mitral regurgitation. TRICUSPID VALVE The tricuspid valve is normal in structure and function. Doppler and Color Flow revealed mild tricusp id regurgitation. There is no tricuspid valve prolapse or vegetation. There is no tricuspid valve carmen nosis. PULMONIC VALVE The pulmonary valve is normal in structure and function. Doppler and Color Flow revealed no pulmonic valvular regurgitation. There is no pulmonic valvular stenosis. GREAT VESSELS The aortic root is normal in size. The ascending aorta is normal in size. The pulmonary artery is nor mal. The IVC is normal in size and collapses >50% with inspiration. PERICARDIAL EFFUSION There is no pleural effusion. There is no evidence of significant pericardial effusion. Critical Notification Critical Value: No <Conclusion> The left ventricular systolic function is normal. The ejection fraction is 60-65%. There is normal LV segmental wall motion. Moderate aortic regurgitation. Mild to moderate mitral regurgitation. Mild tricuspid regurgitation. There is no evidence of significant pericardial effusion. Signed by : Neftaly Humphrey, Electronically Approved : 03/11/2021 13:13:09
== END ==
LOC: ECHO 09:33
PROVIDERS: ATTEND Internal Medicine
DX: I08.3 Combined rheumatic disorders of mitral, aortic and tricuspid valves (principal); I63.9 Cerebral infarction, unspecified
CPT/HCPCS: 93306

== ENCOUNTER → 2021-04-05 | Outpatient (CLI) | payer MEDICARE, BC ==
[~2021-04-05] MED LIST changes: +LIDOCAINE 2% Multi-Dose 20 ML VIAL. ONE
--- NOTE | 2021-04-05 15:46 | CARD ---
MR#: [id number] Date of Study: 04/05/2021 Ordering Physician: PARIS HUMPHREY, Referring Physician: PARIS HUMPHREY, Tech: APPROVED REPORT PROCEDURE: Successful implantation of Biotronik Biomonitor III loop recorder INDICATIONS: Stroke of uncertain etiology r/o atrial fibrillation PROCEDURE DETAILS: An informed consent was obtained from patient. Patient was brought to the procedure suite and her le ft chest and shoulder were prepped and draped in the usual fashion. 20 mL of 2% lidocaine was infilt rated into the skin and subcutaneous tissues for local anesthesia. An incision was made in the left third intercostal space 1 inch from midsternal line and using the introducer and the prior provided w ith the kit, a Biotronik Biomonitor III loop recorder serial number [id number] was placed in the subcut aneous tissue. The incision was closed in one layer. Hemostasis was secured. Patient tolerated the procedure well. There were no immediate complications. At the end of procedure, the device showed sensing amplitude of 1.3 mV. CONCLUSION: Successful implantation of Biotronik Biomonitor III loop recorder for stroke of uncertain etiology to rule out any significant arrhythmias. Signed by : Paris Humphrey, Electronically Approved : 04/05/2021 15:46:49
== END | disposition home or self-care (01) ==
LOC: LINQ 11:00
PROVIDERS: ATTEND Internal Medicine Cardiovascular Disease
DX: I63.89 Other cerebral infarction (principal); K21.9 Gastro-esophageal reflux disease without esophagitis; M19.90 Unspecified osteoarthritis, unspecified site; F17.210 Nicotine dependence, cigarettes, uncomplicated; Z90.710 Acquired absence of both cervix and uterus; Z90.49 Acquired absence of other specified parts of digestive tract; Z98.890 Other specified postprocedural states; Z79.899 Other long term (current) drug therapy; Z88.0 Allergy status to penicillin; Z91.041 Radiographic dye allergy status; Z88.8 Allergy status to other drugs, medicaments and biological substances
CPT/HCPCS: 33285; C1764

== ENCOUNTER → 2021-08-30 | Outpatient (CLI) | payer MEDICARE, BC ==
[~2021-08-30] MED LIST changes: -LIDOCAINE 2% Multi-Dose 20 ML VIAL. ONE; +TIZA-75 PO; -TIZA4TAB2 PO
--- NOTE | 2021-08-30 13:33 | KCIC ---
EXAMINATION: DG BARIUM SWALLOW (ESOPHAGRAM) CLINICAL HISTORY: Dysphagia. History of Schatzki ring dilation 08/01/2021. TECHNIQUE: Double contrast esophagram performed utilizing effervescent granules followed by oral admi nistration of thick and thin barium. - Number of Images: 32 - Fluoroscopy Time: 63 seconds COMPARISON: None FINDINGS: Hypopharynx and cervical esophagus unremarkable. No evidence of esophageal stricture, ring, or mass. No evidence of esophagitis. Tiny hiatal hernia. No reflux elicited despite provocative maneuvers. Esophageal motility within normal limits. IMPRESSION: Tiny hiatal hernia, otherwise unremarkable exam. No evidence of residual esophageal ring or stricture. Electronically signed by: Saul Lyle DO (08/30/2021 1:31 PM) [id number]
== END ==
LOC: KCIC 12:27
PROVIDERS: ATTEND Internal Medicine Gastroenterology
DX: K44.9 Diaphragmatic hernia without obstruction or gangrene (principal); R13.10 Dysphagia, unspecified
CPT/HCPCS: 74220

== ENCOUNTER 2021-10-22 12:39 | Emergency (ER) | payer MEDICARE, BC ==
[~2021-10-22] VITALS: Ht 157.5 cm; Wt 53.1 kg
[2021-10-22 13:06] VITALS: BP 141/67
[2021-10-22] MEDS ORDERED: MORPHINE SULFATE 4 MG/ML INJ. IM ONE (13:45)
[2021-10-22] MEDS ORDERED: DEXAMETHASONE SOD PHOS 20 MG/5 ML VIAL. IM ONE (13:45)
--- NOTE | 2021-10-22 14:11 | RAD ---
XR LEFT HIP (WITH OR WITHOUT PELVIS) 2 VIEWS History: Reason: pain / Spl. Instructions: / History: Technique: AP view the pelvis and 2 additional views of the left hip. Comparison: None. Findings: Mild deformity of the left proximal femur, may relate to prior trauma. No dislocation. No acute fract ure. Lower lumbar spondylosis. Impression: 1. No acute osseous abnormality. Electronically signed by: Cain Gilbert DO (10/22/2021 2:08 PM) [id number]
--- NOTE | 2021-10-22 14:12 | RAD ---
XR LUMBAR SPINE 2-3V History: Reason: pain / Spl. Instructions: / History: Technique: 3 views lumbar spine. Comparison: October 30, 2016 Findings: Moderate leftward curvature of the lumbar spine centered at L2. Chronic T12 compression fracture. No definite acute fracture. Multilevel degenerative disc changes most prominent L2-L3 and L3-L4. Impression: 1. Moderate lumbar spondylosis with leftward curvature. Electronically signed by: Cain Gilbert DO (10/22/2021 2:10 PM) [id number]
--- NOTE | 2021-10-22 14:54 | PHYS DOC ---
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 Patient denies any injuries. Denies any loss of bowel/bladder function. Denies any numbness or tingling to bilateral lower extremities. Describes the pain as sharp and shooting and intermittent. States ambulation exacerbates the pain. States taking tramadol and tizanidine has been relieving some of it. Review of Systems: Review of Systems: Constitutional: Denies fever or chills. []] Musculoskeletal: Reports left low back pain radiating to the left hip to the left lower extremity Integument: Denies rash. [] Neurologic: Denies headache, focal weakness or sensory changes. [] Psychiatric: Denies depression or anxiety. [] Heart Score: C/O Chest Pain: N/A Risk Factors: Risk Factors: DM, Current or recent (<one month) smoker, HTN, HLP, family history of CAD, obesity. Risk Scores: Score 0 - 3: 2.5% MACE over next 6 weeks - Discharge Home Score 4 - 6: 20.3% MACE over next 6 weeks - Admit for Clinical Observation Score 7 - 10: 72.7% MACE over next 6 weeks - Early Invasive Strategies Current Medications: Current Medications Medications (Trade) Dose Ordered Sig/[facility] Start Time Stop Time Status Last Admin Dose Admin Dexamethasone Sodium Phosphate (Decadron) 10 mg 1X ONCE 10/22/21 13:45 10/22/21 13:49 DC 10/22/21 14:08 10 MG Morphine Sulfate (Morphine Sulfate) 4 mg 1X ONCE 10/22/21 13:45 10/22/21 13:49 DC 10/22/21 14:08 4 MG Allergies: Allergies: Allergies Coded Allergies Type Severity Reaction Last Updated Verified Penicillins Allergy Severe Shortness of Air 10/22/21 Yes NSAIDS (Non-Steroidal Anti-Inflamma Allergy Intermediate Rash 03/15/20 Yes acetaminophen Allergy Intermediate Rash 03/15/20 Yes alendronate sodium Allergy Intermediate Rash 03/15/20 Yes barium sulfate Allergy Intermediate Hives 03/15/20 Yes dichloralphenazone Allergy Intermediate Rash 03/15/20 Yes fexofenadine Allergy Intermediate Rash 03/15/20 Yes iodine Allergy Intermediate Rash 03/15/20 Yes isometheptene Allergy Intermediate Rash 03/15/20 Yes Physical Exam: PE: Constitutional: Well developed, well nourished, no acute distress, non-toxic appearance. [] Abdomen: Bowel sounds normal, soft, no tenderness, no masses, no pulsatile masses. [] Skin: Warm, dry, no erythema, no rash. [] Back: Tenderness on palpation of the left SI joint, no midline lumbar spine tenderness, no CVA tenderness. Positive straight leg raise to the left lower extremity at roughly 45 degrees Extremities: No tenderness, no cyanosis, no clubbing, ROM intact, no edema. [] Neurologic: Alert and oriented X 3, normal motor function, normal sensory function, no focal deficits noted. [] Psychologic: Affect normal, judgement normal, mood normal. [] Current Patient Data: Vital Signs: Vital Signs Date Time Temp Pulse Resp B/P (MAP) Pulse Ox O2 Delivery O2 Flow Rate FiO2 10/22/21 14:08 16 97 Room Air 10/22/21 13:06 98.7 63 141/67 (91) 98.7 EKG: EKG: [] Radiology/Procedures: Radiology/Procedures: []PROCEDURE: LUMBAR SPINE 2-3V XR LUMBAR SPINE 2-3V History: Reason: pain / Spl. Instructions: / History: Technique: 3 views lumbar spine. Comparison: October 30, 2016 Findings: Moderate leftward curvature of the lumbar spine centered at L2. Chronic T12 compression fracture. No definite acute fracture. Multilevel degenerative disc changes most prominent L2-L3 and L3-L4. Impression: 1. Moderate lumbar spondylosis with leftward curvature. Electronically signed by: Cain Gilbert DO (10/22/2021 2:10 PM) [id number] DICTATED and SIGNED BY: CAIN GILBERT DO DATE: 10/22/21 1409 PROCEDURE: HIP LEFT 2V WITH PELVIS XR LEFT HIP (WITH OR WITHOUT PELVIS) 2 VIEWS History: Reason: pain / Spl. Instructions: / History: Technique: AP view the pelvis and 2 additional views of the left hip. Comparison: None. Findings: Mild deformity of the left proximal femur, may relate to prior trauma. No dislocation. No acute fracture. Lower lumbar spondylosis. Impression: 1. No acute osseous abnormality. Electronically signed by: Cain Gilbert DO (10/22/2021 2:08 PM) [id number] DICTATED and SIGNED BY: CAIN GILBERT DO DATE: 10/22/211405 Course & Med Decision Making: Course & Med Decision Making Pertinent Labs and Imaging studies reviewed. (See chart for details) This is a 76-year-old female patient presenting to the ED today complaining of left low back pain radiating to the left hip into the left lower extremity, this is a chronic issue but got worse yesterday. Lumbar spine x-rays as well as left hip x-rays including pelvis are negative for any acute findings. Patient was given pain relief in the ED and discharged to home. She has tramadol and tizanidine at home. Follow-up with PCP as well as pain clinic. Nicky Disclaimer: Nicky Disclaimer: This electronic medical record was generated, in whole or in part, using a voice recognition dictation system. Departure Departure Impression: Primary Impression: Sciatica, left side Additional Impression: Left hip pain Disposition: HOME / SELF CARE / HOMELESS Condition: STABLE Referrals: CHET NAQVI MD (PCP) Follow-up in 1 to 2 weeks LINDSAY MANCIA MD Follow-up in 1 to 2 weeks Patient Instructions: Hip Pain, Sciatica, [id number] Additional Instructions: You were evaluated in the emergency room for sciatic pain. Please continue taking tramadol and Tizinidine. Consider using a heating pad or ice to the affected areas. Follow-up with the pain clinic MD primary care doctor in the next 1 to 2 weeks EDILBERTO NORMAN APRN Oct 22, 2021 14:54
[2021-10-31] MEDS ORDERED: CYAN-25 PO (14:25)
[2021-10-31] MEDS ORDERED: CRESTOR40 MG PO (14:25)
[2021-10-31] MEDS ORDERED: CHOL5000 PO (14:25)
== END 2021-10-22 15:07 | disposition home or self-care (01) ==
LOC: ER 12:39
DX: M54.42 Lumbago with sciatica, left side (principal); M25.552 Pain in left hip; G89.29 Other chronic pain; F17.200 Nicotine dependence, unspecified, uncomplicated; Z88.0 Allergy status to penicillin; Z88.6 Allergy status to analgesic agent; Z88.8 Allergy status to other drugs, medicaments and biological substances
CPT/HCPCS: 72100; 73502; 96372; 99284; J1100; J2270

== ENCOUNTER → 2021-10-31 | Outpatient (CLI) | payer MEDICARE, BC ==
[2021-10-22 13:06] VITALS: BP 141/67
[~2021-10-31] MED LIST changes: +CHOL5000 PO; +CRESTOR40 MG PO; +CYAN-25 PO; +DEXAMETHASONE PRES.FREE 10 MG/ML VIAL. ONE; +IOHEXOL 180 MG/ML 10 ML VIAL. ONE
--- NOTE | 2021-10-31 15:01 | PDOC1 ---
INITIAL PAIN CONSULT DATE OF SERVICE: DOS: DATE: 10/31/21 TIME: 14:46 CHIEF COMPLAINT: Chief Complaint: Low back and left lower extremity pain HISTORY OF PRESENT ILLNESS: 76-year-old female presents with history of pain low back and left lower extremity after doing some yard work about 2 weeks ago patient reports prior to that she was doing fairly well with occasional pains down them but now it is in the low back and is relentless it is not going away is radiating to the left lower extremity posterior thigh lateral thigh anterior thigh medial groin into the medial thigh and medial lower leg and knee on the left side patient report is worse with walking standing she is using crutches for the past 10 days or so because the pain is been excruciating patient reports she did go to the [facility] department after this happened some plain films were taken and we have those results here we discussed with her today showing moderate left curvature of the lumbar spine centered at L2 with chronic T12 compression fracture no acute fractures multilevel degenerative disc changes most prominent at L2-3 and L3-4. Patient's hip x-ray showed no acute osseous abnormalities as well. Patient reports pain is worse with walking standing change positions again using crutches to ambulate patient reports it wakes her from sleep least 3-4 times a night does not affect her bowel bladder control but does affect ability to walk patient reports she has had physical therapy in the past which have been helpful also exercise she tried chiropractic treatments in the distant past nothing recently which were not helpful patient is doing some stretching exercises currently on her own patient is seen her primary care physician who is recommending some anti-inflammatories and muscle relaxants as well patient taking tramadol also and tizanidine now both of which do decrease the pain but only by about 10 to 20% patient rates her disability rating 0-10 10 being the worst is a 10 with family home responsibilities recreation social activity 6 with self-care and life support activities. Patient reports no loss of motor function with significant fatigability of the left lower extremity with ambulation. Patient reports no bowel or bladder incontinence. PAST MEDICAL HISTORY: PMH: Dizziness, difficulty urinating PREVIOUS SURGERIES: Past Surgical Hx: Hysterectomy, bladder surgery x4 CURRENT MEDICATIONS: Current Meds: Active Scripts Medications Dose Route/Sig Max Daily Dose Days Date Category Dose Instructions Crestor (Rosuvastatin Calcium) 40 Mg Tablet 1 Tab PO TWICE WEEKLY 10/31/21 Reported Vitamin B-12 (Cyanocobalamin (Vitamin B-12)) 1,000 Mcg Tablet 1 Tab PO DAILY 30 10/31/21 Reported Vitamin D3 (Vitamin D) 125 Mcg Capsule 125 Mcg PO DAILY 10/31/21 Reported 5,000 UNITS = 125 MCG Tizanidine Hcl 4 Mg Tablet 1 Tab PO QHS 10/13/18 Reported Gabapentin 600 Mg Tablet 300 Mg PO HS 10/13/18 Reported Prolia (Denosumab) 60 Mg/1 Ml Disp.syrin 60 Mg SQ [id number] 10/30/16 Reported Tramadol Hcl 50 Mg Tablet 1 Tab PO PRN Q6HRS 10/30/16 Reported ALLERGIES; Allergies: Coded Allergies: Penicillins (Verified Allergy, Severe, Shortness of Air, 10/22/21) NSAIDS (Non-Steroidal Anti-Inflamma (Verified Allergy, Intermediate, Rash, 03/15/20) acetaminophen (Verified Allergy, Intermediate, Rash, 03/15/20) alendronate sodium (Verified Allergy, Intermediate, Rash, 03/15/20) barium sulfate (Verified Allergy, Intermediate, Hives, 03/15/20) dichloralphenazone (Verified Allergy, Intermediate, Rash, 03/15/20) fexofenadine (Verified Allergy, Intermediate, Rash, 03/15/20) iodine (Verified Allergy, Intermediate, Rash, 03/15/20) isometheptene (Verified Allergy, Intermediate, Rash, 03/15/20) FAMILY HISTORY: Family Hx: No major medical problems or conditions that she is aware of. SOCIAL HISTORY: Social Hx: Patient does not drink alcohol does not smokequit 6 months agodoes not use any illegal illicit or recreational drugs, is single lives locally in [facility], and is currently retired REVIEW OF SYSTEMS: ROS: Positive for those items mentioned in history of present illness, all systems are reviewed, otherwise negative ,and are complete full and well-documented on patient's chart. PHYSICAL EXAM: VS: Blood pressure is 137/66 pulse 83 respirations 18 temperature 98.2 F height is 5 feet 2 inches weight is 124 pounds. PE: PHYSICAL EXAMINATION: GENERAL: The patient is awake, alert, oriented, appropriate, very pleasant in demeanor HEENT: Shows normocephalic, atraumatic. Extraocular movements are intact and symmetrical. Oral cavity: Mucous membranes moist and pink. NECK: Shows anterior throat supple without palpable lymphadenopathy noted. Swallow reflex symmetrical. CHEST: Shows normal on inspection. Breath sounds are clear bilaterally, no rales rhonchi wheezes. HEART: Shows S1, S2 clear. No murmurs auscultated. ABDOMEN: Soft, nontender, nondistended. No palpable organomegaly is noted. BACK: Shows spine grossly in the midline. Normal-appearing cervical lordotic curvature. There is moderately increased thoracic kyphosis, some flattening of the lumbar lordotic curvature. Lumbar paraspinous muscles show symmetrical on inspection, on palpation shows some moderate tenderness diffusely throughout the upper, middle and lower distribution of the paraspinous muscles, but without specific trigger points, without radiation of pain. The patient has good rotational motion of the lumbar spine, both laterally as well as extension and flexion without significant difficulty. No tenderness over the spinous processes, sacrum or sacroiliac regions. EXTREMITIES: Lower extremities show deep tendon reflexes 2+ in the patellar and tendo calcaneus tendons. Motor exam is 5 on a scale of 5 with right dorsiflexion, extension, quadriceps and hamstring flexion and 4/5 on the left. Peripheral pulses are 1 posterior tibial. No peripheral edema is noted bilaterally. Lower extremities are warm and dry to touch, equal in color and appearance. Straight leg raise noted to be positive on the left at approximate 40 degrees decreased with knee flexion, right side is negative. Gaenslen's and Farhan's maneuvers are negative bilaterally. The patient is able to stand, has difficulty putting all his weight on her left leg and is using crutches to amb ulate with significant favoring of the left lower extremity. SKIN: Shows warm and dry, good turgor. No edema. No sores, rashes or bruising throughout. IMPRESSION: Impression: 76-year-old female with approximate 2-week history after working in the yard low back left lower extremity pain and radicular fashion. Plain x-rays lumbar spine as noted Arthritis Plan: Options were discussed the patient including conservative managements continued physical therapy and interventional techniques. Patient would like to pursue interventional techniques. We discussed a lumbar epidural steroid injection using descriptions as well as anatomical models to describe the procedure. Risks were discussed including but not limited to: Bleeding, infection, possibility of epidural hematoma and subsequent neurological compromise, dural puncture, headaches, spinal cord and/or nerve damage, side effects of steroid medication, and poor results regarding pain control. Patient understands and wished to proceed. Patient will return to the clinic in approximately 2 weeks for follow-up, was counseled as to return appointment, act ivity level, and side effects to be aware of. Procedure is lumbar epidural steroid injection under local anesthetic using sterile prep and drape at the L2-3 level using C-arm fluoroscopic guidance in both AP and lateral views medications injected is 20 mg dexamethasone +10mL preservative-free normal saline and 2 mL contrast- condition at discharge is stable patient tolerated procedure well had no complications. LINDSAY MANCIA MD Oct 31, 2021 15:01
--- NOTE | 2021-10-31 15:02 | PDOC4 ---
Procedure Note: ICD 10 Code: ICD 10 Code: M54.16 M51.36 M 48.06 Procedure Note: Patient was consented for lumbar epidural steroid injection with fluoroscopic guidance. Risks were discussed including but not limited to: Bleeding, infection, possibility of epidural hematoma and subsequent neurological compromise, dural puncture, headaches, spinal cord and/or nerve damage, side effects of steroid medication, and poor results regarding pain control. Patient understands and wished to proceed. Procedure is lumbar epidural steroid injection under local anesthetic using carmen rile prep and drape at the L2-3 level using C-arm fluoroscopic guidance in both AP and lateral views medications injected is 20 mg dexamethasone +10mL preservative-free normal saline and 2 mL contrast- condition at discharge is stable patient tolerated procedure well had no complications. LINDSAY MANCIA MD Oct 31, 2021 15:02
== END | disposition home or self-care (01) ==
LOC: PNCL 12:56
PROVIDERS: ATTEND Anesthesiology
DX: M51.16 Intervertebral disc disorders with radiculopathy, lumbar region (principal); M48.061 Spinal stenosis, lumbar region without neurogenic claudication; K21.9 Gastro-esophageal reflux disease without esophagitis; M19.90 Unspecified osteoarthritis, unspecified site; M81.0 Age-related osteoporosis without current pathological fracture; Z90.710 Acquired absence of both cervix and uterus; Z98.890 Other specified postprocedural states; F17.210 Nicotine dependence, cigarettes, uncomplicated; Z79.899 Other long term (current) drug therapy; Z88.0 Allergy status to penicillin; Z91.041 Radiographic dye allergy status; Z88.8 Allergy status to other drugs, medicaments and biological substances
CPT/HCPCS: 62323; J1100; Q9965

== ENCOUNTER → 2021-11-15 | Outpatient (CLI) | payer MEDICARE, BC ==
[2021-10-22 13:06] VITALS: BP 141/67
[~2021-11-15] MED LIST changes: -DEXAMETHASONE PRES.FREE 10 MG/ML VIAL. ONE; +methylPREDNISolone ACETATE 40 MG/ML VIAL. ONE
--- NOTE | 2021-11-15 10:10 | PDOC ---
Progress Note - Pain Clinic Date of Service: DOS: DATE: 11/15/21 TIME: 10:07 Diagnosis: Dx: Lumbar radiculopathy with lumbar degenerative disc disease and lumbar spinal stenosis History or Present Illness: HPI: 76-year-old female returns for follow-up status post lumbar epidural steroid action x1. Patient reports about 25% improvement in the low back and left lower extremity increasing her activity to greater ease and she is got rid of her crutches now is using a cane in her right hand to ambulate. Patient reports her pain still significant in her low back and the left lower extremity radiating in the posterior gluteus lateral thigh anterior thigh medial thigh medial groin into the anterior thigh into the medial lower leg patient reports a 10 on scale 10 is worse over the past week 8 on average 8 its least and is an 8 today. Patient reports no new motor or sensory deficits no bowel or bladder inc ontinence. Patient reports still wakes her from sleep at night about once a night but she can use repositioning it back to sleep. Patient reports no bowel or bladder incontinence. Physical Exam: VS: Blood pressure is 141/70 pulse 77 respirations are 16 temperature 97.9 F height is 5 foot 2 inches weight is 123 pounds. PE: PHYSICAL EXAMINATION: GENERAL: The patient is awake, alert, oriented, appropriate, very pleasant in demeanor HEENT: Shows normocephalic, atraumatic. Extraocular movements are intact and symmetrical. Oral cavity: Mucous membranes moist and pink. NECK: Shows anterior throat supple without palpable lymphadenopathy noted. Swallow reflex symmetrical. CHEST: Shows normal on inspection. Breath sounds are clear bilaterally. HEART: Shows S1, S2 clear. No murmurs auscultated. ABDOMEN: Soft, nontender, nondistended. No palpable organomegaly is noted. BACK: Shows spine grossly in the midline. Normal-appearing cervical lordotic curvature. There is slightly increased thoracic kyphosis, some flattening of the lumbar lordotic curvature. Lumbar paraspinous muscles show symmetrical on inspection, on palpation shows some moderate tenderness diffusely throughout the upper, middle and lower distribution of the paraspinous muscles, but without specific trigger points, without radiation of pain. The patient has good rot ational motion of the lumbar spine, both laterally as well as extension and flexion without significant difficulty. EXTREMITIES: Lower extremities show deep tendon reflexes 2+ in the patellar and tendo calcaneus tendons. Motor exam is 5 on a scale of 5 with right dorsiflexion, extension, quadriceps and hamstring flexion and 4/5 on the left. Peripheral pulses are 1+ posterior tibial. No peripheral edema is noted bilaterally. Lower extremities are warm and dry to touch, equal in color and appearance. SKIN: Shows warm and dry, good turgor. No edema. No sores, rashes or bruising throughout. Procedure: Procedure: Options discussed with the patient. Patient's old chart was reviewed as well as her current medication regimen updated current review of systems updated today as well. We will proceed with a second lumbar epidural steroid injection today with fluoroscopic guidance. Risks were discussed including but not limited to: Bleeding, infection, possibility of epidural hematoma and subsequent neurological compromise, dural puncture, headaches, spinal cord and/or nerve damage, side effects of steroid medication, and poor results regarding pain control. Patient understands and wished to proceed. Patient will return to clinic in approximate 2 weeks for follow-up, was counseled as to return appointment, activity level, and side effect to be aware of. Medication Injected: Med Injected: Procedure is lumbar epidural steroid injection under local anesthetic using sterile prep and drape at the L2-3 level using C-arm fluoroscopic guidance in both AP and lateral views medications injected is 120 mg methylprednisolone +10mL preservative-free normal saline and 2 mL contrast- condition at discharge is stable patient tolerated procedure well had no complications. Condition at Discharge: Condition at Discharge: Condition at discharge stable, patient tolerated the procedure well and had no complications. LINDSAY MANCIA MD Nov 15, 2021 10:10
--- NOTE | 2021-11-15 10:11 | PDOC4 ---
Procedure Note: ICD 10 Code: ICD 10 Code: M54.16 M51.36 M48.06 Procedure Note: Patient was consented for lumbar epidural steroid injection with fluoroscopic guidance risks were discussed including but not limited to: Bleeding, infection, possibility of epidural hematoma and subsequent neurological compromise, dural p uncture, headaches, spinal cord and/or nerve damage, side effects of steroid medication, and poor results regarding pain control. Patient understands and wished to proceed. Procedure is lumbar epidural steroid injection under local anesthetic using sterile prep and drape at the L2-3 level using C-arm fluoroscopic guidance in both AP and lateral views medications injected is 120 mg methylprednisolone +10mL preservative-free normal saline and 2 mL contrast- condition at discharge is stable patient tolerated procedure well had no complications. LINDSAY MANCIA MD Nov 15, 2021 10:11
== END | disposition home or self-care (01) ==
LOC: PNCL 09:25
PROVIDERS: ATTEND Anesthesiology
DX: M51.16 Intervertebral disc disorders with radiculopathy, lumbar region (principal); M48.061 Spinal stenosis, lumbar region without neurogenic claudication; K21.9 Gastro-esophageal reflux disease without esophagitis; M19.90 Unspecified osteoarthritis, unspecified site; F17.210 Nicotine dependence, cigarettes, uncomplicated; Z90.49 Acquired absence of other specified parts of digestive tract; Z90.710 Acquired absence of both cervix and uterus; Z98.890 Other specified postprocedural states; Z88.8 Allergy status to other drugs, medicaments and biological substances
CPT/HCPCS: 62323; J1030; Q9965

== ENCOUNTER → 2021-11-29 | Outpatient (CLI) | payer MEDICARE, BC ==
[~2021-11-29] MED LIST changes: +DEXAMETHASONE PRES.FREE 10 MG/ML VIAL. ONE; -methylPREDNISolone ACETATE 40 MG/ML VIAL. ONE
--- NOTE | 2021-11-29 09:36 | PDOC4 ---
Procedure Note: ICD 10 Code: ICD 10 Code: M54.16 M51.36 M48.06 Procedure Note: Patient is consented for lumbar epidural steroid injection fluoroscopic guidance. Risks were discussed including but not limited to: Bleeding, infection, possibility of epidural hematoma and subsequent neurological compromise, dural puncture, headaches, spinal cord and/or nerve damage, side effects of steroid medication, and poor results regarding pain control. Patient understands and wished to proceed. Procedure is lumbar epidural steroid injection under local anesthetic using sterile prep and drape at the L3-4 level using C-arm fluoroscopic guidance in both AP and lateral views medications injected is 20 mg dexamethasone +10mL preservative-free normal saline and 2 mL contrast- condition at discharge is stable patient tolerated procedure well had no complications. LINDSAY MANCIA MD Nov 29, 2021 09:36
--- NOTE | 2021-11-29 09:36 | PDOC ---
Progress Note - Pain Clinic Date of Service: DOS: DATE: 11/29/21 TIME: 09:32 Diagnosis: Dx: Lumbar radiculopathy with lumbar degenerative disease lumbar spinal stenosis Left hip joint pain with osteoarthritis History or Present Illness: HPI: 76-year-old female returns for follow-up status post lumbar epidural steroid injection last seen November 15, 2021 patient did very well with about 100% improvement in her low back pain but the left leg still significant pain radiating to the anterior groin and anterior medial thigh medial lower leg into the ankle and medial foot on the left side patient reports that she is getting up and down better been increasing her activity to greater ease and comfort travel with greater ease still has difficulty with the left leg and now reports significant pain radiating to the left groin with weightbearing which as she describes as fairly consistent with some left hip joint pain itself patient reports is getting worse with time and that we recommend orthopedic consultation for her which we we will make arrangements for her as well. Patient reports pain is stabbing aching shooting radiating constant in the leg itself of the back is doing much better patient rates her pain as a 9 on scale 10 is worse with past week 8 on average 8 its least and is an 8 today. Patient reports no bowel or bladder incontinence no loss of motor function. Physical Exam: VS: Blood pressure is 134/88 pulse 91 respirations 18 temperature 98.5 F weight is 125 pounds. PE: PHYSICAL EXAMINATION: GENERAL: The patient is awake, alert, oriented, appropriate, very pleasant in demeanor HEENT: Shows normocephalic, atraumatic. Extraocular movements are intact and symmetrical. Oral cavity: Mucous membranes moist and pink. NECK: Shows anterior throat supple without palpable lymphadenopathy noted. Swallow reflex symmetrical. CHEST: Shows normal on inspection. Breath sounds are clear bilaterally. HEART: Shows S1, S2 clear. No murmurs auscultated. ABDOMEN: Soft, nontender, nondistended. No palpable organomegaly is noted. No rebound or guarding demonstrated. BACK: Shows spine grossly in the midline. Normal-appearing cervical lordotic curvature. There is mildly increased thoracic kyphosis, some flattening of the lumbar lordotic curvature. Lumbar paraspinous muscles show symmetrical on inspection, on palpation shows some moderate tenderness diffusely throughout the upper, middle and lower distribution of the paraspinous muscles, but without specific trigger points, without radiation of pain. The patient has good rotational motion of the lumbar spine, both laterally as well as extension and flexion without significant difficulty. EXTREMITIES: Lower extremities show deep tendon reflexes 2+ in the patellar and tendo calcaneus tendons. Motor exam is 5 on a scale of 5 with right dorsiflexion, extension, quadriceps and hamstring flexion and 4/5 on the left. Peripheral pulses are 1 posterior tibial. No peripheral edema is noted bilaterally. Lower extremities are warm and dry to touch, equal in color and appearance. Patient's left hip shows significant tenderness with palpation over the anterior aspect of the hip and positive Farhan's sign with external rotation and posterior displacement of the left hip but not the right. SKIN: Shows warm and dry, good turgor. No edema. No sores, rashes or bruising throughout. Procedure: Procedure: Options were discussed with patient. Patient's chart was reviewed as her current medication regimen updated current review of systems updated today as well. We will proceed with a lumbar epidural steroid injection today with fluoroscopic guidance. Risks were discussed including but not limited to: Bleeding, infection, possibility of epidural hematoma and subsequent neuro logical compromise, dural puncture, headaches, spinal cord and/or nerve damage, side effects of steroid medication, and poor results regarding pain control. Patient understands and wished to proceed. Patient return to the clinic in approximate 2 weeks for follow-up, was counseled as return appointment, active level, and side effect to be aware of. Patient will have appointment with orthopedics for evaluation of left hip joint pain as scheduled. Medication Injected: Med Injected: Procedure is lumbar epidural steroid injection under local anesthetic using sterile prep and drape at the L3-4 level using C-arm fluoroscopic guidance in both AP and lateral views medications injected is 20 mg dexamethasone +10mL preservative-free normal saline and 2 mL contrast- condition at discharge is stable patient tolerated procedure well had no complications. Condition at Discharge: Condition at Discharge: Condition at discharge is stable, patient tolerated the procedure well and had no complications. LINDSAY MANCIA MD Nov 29, 2021 09:35
== END | disposition home or self-care (01) ==
LOC: PNCL 08:48
PROVIDERS: ATTEND Anesthesiology
DX: M51.16 Intervertebral disc disorders with radiculopathy, lumbar region (principal); M48.061 Spinal stenosis, lumbar region without neurogenic claudication; M16.12 Unilateral primary osteoarthritis, left hip; K21.9 Gastro-esophageal reflux disease without esophagitis; M19.90 Unspecified osteoarthritis, unspecified site; M81.0 Age-related osteoporosis without current pathological fracture; Z90.49 Acquired absence of other specified parts of digestive tract; Z90.710 Acquired absence of both cervix and uterus; Z98.890 Other specified postprocedural states; Z79.899 Other long term (current) drug therapy; F17.210 Nicotine dependence, cigarettes, uncomplicated; Z88.0 Allergy status to penicillin; Z88.1 Allergy status to other antibiotic agents; Z88.8 Allergy status to other drugs, medicaments and biological substances
CPT/HCPCS: 62323; J1100; Q9965